=== PATIENT | male | born 1980 | race Two or more races ===

== ENCOUNTER 2017-10-05 15:16 | Emergency (ER) | payer OTHER ==
[~2017-10-05] VITALS: Ht 160 cm; Wt 63.5 kg
[2017-10-05] MEDS ORDERED: ACETAMINOPHEN 500 MG TABLET PO ONE (16:40)
[2017-10-05 16:50] LABS: INFLUENZA A PATIENT NEGATIVE (NEGATIVE); INFLUENZA B PATIENT NEGATIVE (NEGATIVE)
[2017-10-05] MEDS ORDERED: IPRA15SP NS (17:08)
--- NOTE | 2017-10-05 17:08 | PHYS DOC ---
Past History Past Medical History: No Pertinent History Past Surgical History: Other Alcohol Use: None Drug Use: None Adult General Chief Complaint Chief Complaint: FLU SYMPTOM HPI HPI Patient is a 37 year old M who presents with nasal congestion and generalized body aches. He states he has had intermittent symptoms since he moved to [place] from [facility]. He feels that these symptoms have been present over the past 5-6 days. He describes mild to moderate nasal drainage that is typically clear but occasionally yellow in the mornings. He denies any other associated symptoms. He has no other exacerbating or alleviating factors. Review of Systems Review of Systems Constitutional: Denies fever or chills [] Eyes: Denies change in visual acuity, redness, or eye pain [] HENT: Negative except history of present illness Respiratory: Denies cough or shortness of breath [] Cardiovascular: No additional information not addressed in HPI [] GI: Denies abdominal pain, nausea, vomiting, bloody stools or diarrhea [] : Denies dysuria or hematuria [] Musculoskeletal: Denies back pain or joint pain [] Integument: Denies rash or skin lesions [] Neurologic: Denies headache, focal weakness or sensory changes [] Endocrine: Denies polyuria or polydipsia [] All other systems were reviewed and found to be within normal limits, except as documented in this note. Family History Family History No pertinent family medical history was reported Current Medications Current Medications Current medications reviewed Current Medications Medications (Trade) Dose Ordered Sig/Justus Start Time Stop Time Status Last Admin Dose Admin Acetaminophen (Tylenol) 500 mg STK-MED ONCE 10/05/17 16:40 10/05/17 16:41 DC Allergies Allergies Allergies Coded Allergies Type Severity Reaction Last Updated Verified No Known Drug Allergies 10/05/17 No Physical Exam Physical Exam Constitutional: Well developed, well nourished, no acute distress, non-toxic appearance. [] HENT: Normocephalic, atraumatic, mild nasal mucosa erythema and edema with mild drainage noted Eyes: EOMI, conjunctiva normal, no discharge. [] Neck: Normal range of motion, no tenderness, supple, no stridor. [] Cardiovascular:Heart rate regular rhythm, no murmur [] Lungs & Thorax: Bilateral breath sounds clear to auscultation [] Abdomen: Bowel sounds normal, soft, no tenderness, no masses, no pulsatile masses. [] Skin: Warm, dry, no erythema, no rash. [] Extremities: No tenderness, no cyanosis, no clubbing, ROM intact, no edema. [] Neurologic: Alert and oriented X 3, normal motor function, normal sensory function, no focal deficits noted. [] Psychologic: Affect normal, judgement normal, mood normal. [] Current Patient Data Vital Signs Vital Signs Date Time Temp Pulse Resp B/P (MAP) Pulse Ox O2 Delivery O2 Flow Rate FiO2 10/05/17 15:40 98.7 71 20 99 Room Air Lab Results Laboratory Tests Test 10/05/17 15:55 Influenza Type A (Rapid) Negative (NEGATIVE) Influenza Type B (Rapid) Negative (NEGATIVE) EKG EKG [] Radiology/Procedures Radiology/Procedures [] Course & Med Decision Making Course & Med Decision Making Pertinent Labs and Imaging studies reviewed. (See chart for details) [] Dragon Disclaimer Dragon Disclaimer This electronic medical record was generated, in whole or in part, using a voice recognition dictation system. Departure Departure: Impression: Primary Impression: Upper respiratory infection, viral Disposition: 01 HOME, SELF-CARE Condition: STABLE Referrals: JOSE VO DO (PCP) Patient Instructions: Upper Respiratory Infection, Adult Additional Instructions: Orlin was seen in the emergency department for flulike symptoms. No emergency medical condition was found on history or physical exam. His symptoms are most consistent with an upper respiratory infection. His flu screen was negative. He is advised to use saline rinses regularly. He is given a prescription for Atrovent and was advised to consider using Afrin as needed for difficulty breathing particularly at night. He was advised to use Afrin no longer than 3 days time. He is advised follow-up with his primary care doctor as needed for further management. Scripts Ipratropium [place] (IPRATROPIUM BROMIDE) 15 Ml [place] 15 ML NS TID for 7 Days, SPRAY Prov: TEAGAN HURTADO MD 10/05/17 TEAGAN HURTADO MD Oct 05, 2017 17:08
[2017-10-05 17:21] VITALS: BP 110/73
== END 2017-10-05 17:22 | disposition home or self-care (01) ==
LOC: ER 15:16
DX: J06.9 Acute upper respiratory infection, unspecified (principal); B97.89 Other viral agents as the cause of diseases classified elsewhere
CPT/HCPCS: 87804; 99284

== ENCOUNTER 2017-10-21 10:49 | Emergency (ER) | payer OTHER ==
[~2017-10-21] VITALS: Ht 160 cm; Wt 64.9 kg
[~2017-10-21 10:49] MED LIST: IPRA15SP NS
[2017-10-21] MEDS ORDERED: IV NORMAL SALINE 1,000ML 1,000 ML IV SCH (11:03)
--- NOTE | 2017-10-21 11:10 | PHYS DOC ---
Past History Past Medical History: No Pertinent History Past Surgical History: No Surgical History, Other Smoking: Non-smoker Alcohol Use: Occasionally Drug Use: None Adult General Chief Complaint Chief Complaint: ABDOMINAL PAIN HPI HPI he has a pleasant 37-year-old male otherwise healthy who consumed what he thought was "" "hamburger meat with lower pink and side that he believes is now associated with a diarrheal illness he presents per day. He describes a little epigastric abdominal pain is gotten progressively worse with loose diarrheal stools now a little dark. The symptoms all began 3 days ago. He's had diffuse, crampy abdominal pain not specifically localize in any one particular area the body but is not change with position, exercise or food. He describes no fevers no chills, the diarrhea is loose he describes slight streaks of blood with wiping. There is some slight rectal discomfort only with wiping but no rectal pain. He denies any UTI symptoms or other urinary problems. He denies any trauma denies any change in excess habits denies any recent travel outside the country other than [facility] back in July of this year patient has not been any antibiotics or sick contacts at home. Acute pancreatitis. Appendicitis. Acute hepatitis. Peptic ulcer disease. Nonulcer dyspepsia. Irritable bowel disease. Functional gallbladder disorder. Sphincter of Oddi dysfunction. Diseases of the right kidney. Right-sided pneumonia. Pjhf-Pgys-Bexqxf syndrome Subhepatic or intraabdominal abscess. Perforated viscus. Cardiac ischemia. Black spider envenomation UTI, pyonephritis, kidney stone, abdominal aneurysm, Review of Systems Review of Systems Constitutional: Denies fever or chills [] Eyes: Denies change in visual acuity, redness, or eye pain [] HENT: Denies nasal congestion or sore throat [] Respiratory: Denies cough or shortness of breath [] Cardiovascular: No additional information not addressed in HPI [] GI: Positive for abdominal pain and nausea without vomiting but there is blood in his stools and diarrhea. : Denies dysuria or hematuria [] Musculoskeletal: Denies back pain or joint pain [] Integument: Denies rash or skin lesions [] Neurologic: Denies headache, focal weakness or sensory changes [] Endocrine: Denies polyuria or polydipsia [] All other systems were reviewed and found to be within normal limits, except as documented in this note. Allergies Allergies Allergies Coded Allergies Type Severity Reaction Last Updated Verified No Known Drug Allergies 10/05/17 No Physical Exam Physical Exam Vital signs recorded on the chart at this time within normal limits Constitutional: Well developed, well nourished, no acute distress, non-toxic appearance. [] HENT: Normocephalic, atraumatic, bilateral external ears normal, oropharynx moist, no oral exudates, nose normal. [] Cardiovascular:Heart rate regular rhythm, no murmur [] Lungs & Thorax: Bilateral breath sounds clear to auscultation [] Abdomen: Bowel sounds normal, soft, no masses, no pulsatile masses. Slight tenderness to palpation diffusely over the abdomen. No Ladd's or McBurney's point tenderness to palpation rectal exam, brown stool stool in the vault no evidence of hemorrhoid or rectal fissure no active bleeding [] Skin: Warm, dry, no erythema, no rash. [] Extremities: No tenderness, no cyanosis, no clubbing, ROM intact, no edema. [] Neurologic: Alert and oriented X 3, normal motor function, normal sensory function, no focal deficits noted. [] Psychologic: Affect normal, judgement normal, mood normal. [] Current Patient Data Lab Results Laboratory Tests Test 10/21/17 11:19 10/21/17 11:24 White Blood Count 7.2 x10^3/uL (4.0-11.0) Red Blood Count 5.36 x10^6/uL (4.30-5.70) Hemoglobin 15.9 g/dL (13.0-17.5) Hematocrit 46.8 % (39.0-53.0) Mean Corpuscular Volume 87 fL (79-100) Mean Corpuscular Hemoglobin 30 pg (25-35) Mean Corpuscular Hemoglobin Concent 34 g/dL (31-37) Red Cell Distribution Width 13.6 % (11.5-14.5) Platelet Count 233 x10^3/uL (140-400) Neutrophils (%) (Auto) 63 % (31-73) Lymphocytes (%) (Auto) 24 % (24-48) Monocytes (%) (Auto) 10 % (0-9) H Eosinophils (%) (Auto) 3 % (0-3) Basophils (%) (Auto) 1 % (0-3) Neutrophils # (Auto) 4.5 x10^3uL (1.8-7.7) Lymphocytes # (Auto) 1.7 x10^3/uL (1.0-4.8) Monocytes # (Auto) 0.7 x10^3/uL (0.0-1.1) Eosinophils # (Auto) 0.2 x10^3/uL (0.0-0.7) Basophils # (Auto) 0.0 x10^3/uL (0.0-0.2) Sodium Level 140 mmol/L (136-145) Potassium Level 4.2 mmol/L (3.5-5.1) Chloride Level 102 mmol/L (98-107) Carbon Dioxide Level 32 mmol/L (21-32) Anion Gap 6 (6-14) Blood Urea Nitrogen 11 mg/dL (8-26) Creatinine 1.1 mg/dL (0.7-1.3) Estimated GFR (Cockcroft-Gault) 75.7 Glucose Level 100 mg/dL (70-99) H Calcium Level 9.1 mg/dL (8.5-10.1) Total Bilirubin 0.6 mg/dL (0.2-1.0) Direct Bilirubin 0.1 mg/dL (0.0-0.2) Aspartate Amino Transferase (AST) 30 U/L (15-37) Alanine Aminotransferase (ALT) 29 U/L (16-63) Alkaline Phosphatase 87 U/L (46-116) Total Protein 8.0 g/dL (6.4-8.2) Albumin 4.1 g/dL (3.4-5.0) Lipase 119 U/L (73-393) Stool Occult Blood Positive (NEG) EKG EKG [] Radiology/Procedures Radiology/Procedures [] [address] [place] [id number] IMAGING REPORT Signed PATIENT: JELLY GUERRERO ACCOUNT: [id number] : 1980 LOCATION: ER AGE: 37 SEX: M EXAM STATUS: REG ER ORD. PHYSICIAN: JOVITA LEONARD MD REASON: stool blood PROCEDURE: CT ABD PELV W/ IV CONTRST ONLY CT abdomen and pelvis with IV contrast History: Bloody stool, diarrhea, epigastric pain for 3 days. Comparison: None. Technique: After administration of intravenous contrast, 75 mL Omnipaque 300, helical CT of the abdomen and pelvis was performed from the lung bases through the ischial tuberosities. Axial, sagittal, and coronal reconstructions were obtained. One or more of the following individualized dose reduction techniques were utilized for the study: Automated exposure control Adjustment of mA and/or kV according to patient's size Use of iterative reconstruction technique. Findings: Evaluation of enteric structures may be limited by lack of oral contrast. Evaluation is also limited secondary to a relative paucity of intra-abdominal and intrapelvic fat. Liver, spleen, pancreas, gallbladder, and bilateral adrenal glands are unremarkable. Bilateral kidneys enhance symmetrically. No free air or free fluid is identified in the abdomen or pelvis. Appendix appears within normal limits. Urinary bladder is unremarkable. There is evidence of bowel wall thickening of the right colon and much of the transverse colon. There also may be wall thickening of the terminal ileum. Impression: 1. Wall thickening of the right and transverse colon. Suspect mild wall thickening of the terminal ileum. Findings are compatible with nonspecific infectious or inflammatory enterocolitis. 2. No perforation or abscess is seen. Course & Med Decision Making Course & Med Decision Making Pertinent Labs and Imaging studies reviewed. (See chart for details) []Patient presents with abdominal pain and loose stool described as possibly bloody or tarry patient will be screened for upper GI bleed lower GI bleed and other sources of infectious diarrhea Patient presents with diarrhea after consuming when he calls uncooked meat. Patient denies any fevers or chills although his crampy abdominal pain is gotten progressively worse patient may be suffering from an infectious colitis based on the diarrhea with blood. He is guaiac positive from below his white count is normal today and his H&H is stable. The rest of his LFTs are unremarkable. CT scan abdomen and pelvis read by radiology reviewed by me demonstrates diffuse colonic inflammation and edema consistent with an infectious versus inflammatory enteritis. Given the fact that the patient is otherwise healthy with no prior history of same he denies any weight loss or intermittent constipation with the stooling problems for more than just 3 or 4 days I believe this is an infectious issue from the food she consumed. I will place him on antibiotics appropriate for infectious process. he will be placed on ciprofloxacin 500 mg by mouth twice a day for 5 days he will also be given Imodium and Bentyl for his crampy abdominal pain and diarrhea encourage fluid hydrate and follow up with his regular doctor. Although he has not had a history consistent with irritable bowel syndrome and Crohn's also colitis I will [facility] if [facility] symptoms are persistent. discharge: I've spoken with the patient and/or caregivers. I've explained the patient's condition, diagnosis and treatment plan based on information available to me at this time. I've answered the patient's and/or caregivers questions and addressed any concerns. The patient and/or caregivers have a good understanding the patient's diagnosis, condition and treatment plan as can be expected at this point. Vital signs have been stabilized. The patient's condition is stable for discharge from the emergency department. The patient will pursue further outpatient evaluation with her primary care provider or other designated consulting physician as outlined in the discharge instructions. Patient and/or caregivers are agreeable to this plan of care and follow-up instructions have been explained in detail. The patient and/or caregivers have received these instructions in written format and expressed understanding of these discharge instructions. The patient and her caregivers are aware that if any significant change in condition or worsening of symptoms should prompt him to immediately return to this of the closest emergency department. If an emergent department is not readily available I would encourage him to call 911. With GI follow-up Kaleigh Disclaimer Kaleigh Disclaimer This electronic medical record was generated, in whole or in part, using a voice recognition dictation system. Departure Departure: Impression: Primary Impression: Infectious enteritis Disposition: 01 HOME, SELF-CARE Condition: IMPROVED Referrals: JOSE VO DO (PCP) HERSON RAHMAN MD Patient Instructions: Abdominal Pain, Diarrhea Additional Instructions: discharge: I've spoken with the patient and/or caregivers. I've explained the patient's condition, diagnosis and treatment plan based on information available to me at this time. I've answered the patient's and/or caregivers questions and addressed any concerns. The patient and/or caregivers have a good understanding the patient's diagnosis, condition and treatment plan as can be expected at this point. Vital signs have been stabilized. The patient's condition is stable for discharge from the emergency department. The patient will pursue further outpatient evaluation with her primary care provider or other designated consulting physician as outlined in the discharge instructions. Patient and/or caregivers are agreeable to this plan of care and follow-up instructions have been explained in detail. The patient and/or caregivers have received these instructions in written format and expressed understanding of these discharge instructions. The patient and her caregivers are aware that if any significant change in condition or worsening of symptoms should prompt him to immediately return to this of the closest emergency department. If an emergent department is not readily available I would encourage him to call 911. Scripts Ondansetron (ZOFRAN ODT) 4 Mg Tab.rapdis 1 TAB SL Q8HRS, #15 TAB Prov: JOVITA LEONARD MD 10/21/17 Diphenoxylate Hcl/Atropine (LOMOTIL TABLET) 1 Each Tablet 1 TAB PO QID, #20 TAB Prov: JOVITA LEONARD MD 10/21/17 Ciprofloxacin Hcl (CIPROFLOXACIN HCL) 500 Mg Tablet 1 TAB PO BID, #10 TAB Prov: JOVITA LEONARD MD 10/21/17 Dicyclomine Hcl (BENTYL) 10 Mg Capsule 1 CAP PO TID, #15 CAP.EC Prov: JOVITA LEONARD MD 10/21/17 JOVITA LEONARD MD Oct 21, 2017 11:10
[2017-10-21] MEDS ORDERED: 0.9 % SODIUM CHLORIDE 10 ML DISP.SYRIN. IV PRN (11:15)
[2017-10-21 11:22] VITALS: BP 127/77
[2017-10-21 11:28] LABS: BASO % 1 % (0-3); EOS # 0.2 x10^3/uL (0.0-0.7); EOS % 3 % (0-3); HEMATOCRIT 46.8 % (39.0-53.0); HEMOGLOBIN 15.9 g/dL (13.0-17.5); LYMPH # 1.7 x10^3/uL (1.0-4.8); LYMPH % 24 % (24-48); MEAN CORPUSCULAR HEMOGLOBIN 30 pg (25-35); MEAN CORPUSCULAR HGB CONC 34 g/dL (31-37); MEAN CORPUSCULAR VOLUME 87 fL (79-100); MONO # 0.7 x10^3/uL (0.0-1.1); MONO % 10 % (0-9); NEUT # 4.5 x10^3uL (1.8-7.7); NEUT % 63 % (31-73); PLATELET COUNT 233 x10^3/uL (140-400); RED BLOOD COUNT 5.36 x10^6/uL (4.30-5.70); RED CELL DISTRIBUTION WIDTH 13.6 % (11.5-14.5); WHITE BLOOD COUNT 7.2 x10^3/uL (4.0-11.0)
[2017-10-21] MEDS ORDERED: ONDANSETRON PF 4 MG/2 ML VIAL. IV ONE (11:30)
[2017-10-21] MEDS ORDERED: IOHEXOL 300 MG/ML 75 ML VIAL. IV ONE (11:30)
[2017-10-21] MEDS ORDERED: LIDO:MAALOX 1:1 20 ML SINGLE DOSE PO ONE (11:30)
[2017-10-21 11:42] LABS: ALBUMIN 4.1 g/dL (3.4-5.0); CALCIUM 9.1 mg/dL (8.5-10.1); CREATININE 1.1 mg/dL (0.7-1.3); DIRECT BILIRUBIN 0.1 mg/dL (0.0-0.2); GFR 75.7; POTASSIUM 4.2 mmol/L (3.5-5.1); TOTAL BILIRUBIN 0.6 mg/dL (0.2-1.0)
--- NOTE | 2017-10-21 11:58 | RAD ---
CT abdomen and pelvis with IV contrast History: Bloody stool, diarrhea, epigastric pain for 3 days. Comparison: None. Technique: After administration of intravenous contrast, 75 mL Omnipaque 300, helical CT of the abdomen and pelvis was performed from the lung bases through the ischial tuberosities. Axial, sagittal, and coronal reconstructions were obtained. One or more of the following individualized dose reduction techniques were utilized for the study: Automated exposure control Adjustment of mA and/or kV according to patient's size Use of iterative reconstruction technique. Findings: Evaluation of enteric structures may be limited by lack of oral contrast. Evaluation is also limited secondary to a relative paucity of intra-abdominal and intrapelvic fat. Liver, spleen, pancreas, gallbladder, and bilateral adrenal glands are unremarkable. Bilateral kidneys enhance symmetrically. No free air or free fluid is identified in the abdomen or pelvis. Appendix appears within normal limits. Urinary bladder is unremarkable. There is evidence of bowel wall thickening of the right colon and much of the transverse colon. There also may be wall thickening of the terminal ileum. Impression: 1. Wall thickening of the right and transverse colon. Suspect mild wall thickening of the terminal ileum. Findings are compatible with nonspecific infectious or inflammatory enterocolitis. 2. No perforation or abscess is seen.
[2017-10-21 12:10] LABS: FECAL OB PT POSITIVE (NEG)
--- NOTE | 2017-10-21 12:12 | EKG ---
[address] [address] Test Date: 2017-10-21 Test Time: 11:47:09 Pat Name: JELLY GUERRERO Department: Room: Gender: M Infertility Medical Assistant: ANGEL : 1980 Requested By: JOVITA LEONARD Order Number: [id number] Reading MD: Measurements Intervals [place] Rate: 61 P: 49 FL: 144 QRS: 34 QRSD: 100 T: 42 QT: 412 QTc: 420 Interpretive Statements SINUS RHYTHM NO SPECIFIC ECG ABNORMALITIES RI6.01 No previous ECG available for comparison
[2017-10-21] MEDS ORDERED: ONDA4TAB10 SL (12:23)
[2017-10-21] MEDS ORDERED: CIPR500T PO (12:23)
[2017-10-21] MEDS ORDERED: DICY10CA53 PO (12:23)
[2017-10-21] MEDS ORDERED: DIPH1TAB PO (12:23)
== END 2017-10-21 12:48 | disposition home or self-care (01) ==
LOC: ER 10:49
DX: A09 Infectious gastroenteritis and colitis, unspecified (principal)
CPT/HCPCS: 36415; 74177; 80048; 80076; 82274; 83690; 85025; 93005; 96361; 96374; 99285; J2405; Q9967; J7030